=== PATIENT | female | born 1980 | race Hispanic/Latino ===

== ENCOUNTER 2017-09-20 20:50 | Inpatient (IN) | payer MEDICAID ==
[2017-09-20 21:55] LABS: BASO # 0.1 K/uL (0.0-0.2); BASO % 0.7 % (0.0-2.0); EOS # 0.1 K/uL (0.0-0.7); EOS % 0.6 % (0.0-4.0); HEMOGLOBIN 14.7 g/dL (11.0-16.0); LYMPH # 2.9 K/uL (1.0-4.3); LYMPH % 25.8 % (20.0-40.0); MEAN CELL VOLUME 88.5 fL (81.0-99.0); MEAN CORPUSCULAR HEMOGLOBIN 30.9 pg (27.0-31.0); MEAN CORPUSCULAR HGB CONC 34.9 g/dL (33.0-37.0); MEAN PLATELET VOLUME 9.1 fL (7.2-11.7); MONO # 0.6 K/uL (0.0-0.8); MONO % 5.1 % (0.0-10.0); NEUT # 7.6 K/uL (1.8-7.0); NEUT % 67.8 % (50.0-75.0); RBC 4.74 Mil/uL (3.80-5.20); RED CELL DISTRIBUTION WIDTH 12.6 % (11.5-14.5); WHITE BLOOD COUNT 11.3 K/uL (4.8-10.8)
[2017-09-20 22:07] LABS: SQUAMOUS EPITHIAL 24 /hpf (0-5); URINE BACTERIA RARE (<OCC); URINE BILIRUBIN NEGATIVE (NEGATIVE); URINE BLOOD 3+ (NEGATIVE); URINE CLARITY Turbid (Clear); URINE COLOR Amber (YELLOW); URINE GLUCOSE (UA) NORMAL (Normal); URINE PROTEIN 2+ mg/dL (NEGATIVE); URINE UROBILINOGEN NORMAL mg/dL (0.2-1.0)
[2017-09-20 22:08] LABS: ALB/GLOB RATIO 1.3 (1.0-2.1); ALBUMIN 4.3 g/dL (3.5-5.0); ALT/SGPT 24 U/L (9-52); AST/SGOT 27 U/L (14-36); BLOOD UREA NITROGEN 8 mg/dL (7-17); CALCIUM 9.4 mg/dl (8.6-10.4); GFR AFRICAN-AMERICAN > 60; GFR NON-AFRICAN AMERICAN > 60
[2017-09-20 22:09] LABS: ACETAMINOPHEN < 10.0 ug/mL (10.0-30.0); SALICYLATE < 1.0 mg/dL 1; URINE LEUKOCYTE ESTERASE 3+ Leu/uL (Negative)
[2017-09-20 22:12] LABS: BARBITURATES, UR NEGATIVE (NEGATIVE); BENZODIAZEPINES, UR NEGATIVE (NEGATIVE); PHENCYCLIDINE, UR NEGATIVE (NEGATIVE)
[2017-09-20 22:14] LABS: OPIATES, UR POSITIVE (NEGATIVE)
--- NOTE | 2017-09-20 23:17 | C.PDOC ---
Time Seen by Provider: 09/20/17 21:52 Chief Complaint (Nursing): Psychiatric Evaluation History Per: Patient Onset/Duration Of Symptoms: Days Current Symptoms Are (Timing): Still Present Suicide/Self Injury Attempted (Context): None Modifying Factor(s): Narcotics Severity: Moderate Associated Symptoms: Depression, Suicidal Thoughts Additional History Per: Prior Records Past Medical History Reviewed: Historical Data, Nursing Documentation, Vital Signs Vital Signs: Last Vital Signs Temp 97.6 F 09/20/17 22:41 Pulse 76 09/20/17 22:41 Resp 18 09/20/17 22:41 BP 117/80 09/20/17 22:41 Pulse Ox 97 09/20/17 22:41 - Medical History PMH: Bipolar Disorder, Seizures (2012 , grand mal, stopped meds) Family History: States: Unknown Family Hx - Social History Hx Tobacco Use: Yes Hx Alcohol Use: No Hx Substance Use: Yes (heroin iv , xanax) - Immunization History Hx Tetanus Toxoid Vaccination: No Hx Influenza Vaccination: No Hx Pneumococcal Vaccination: No Review Of Systems Except As Marked, All Systems Reviewed And Found Negative. Constitutional: Negative for: Fever Cardiovascular: Negative for: Chest Pain Respiratory: Negative for: Shortness of Breath Gastrointestinal: Negative for: Vomiting Musculoskeletal: Negative for: Neck Pain Neurological: Negative for: Weakness, Numbness Physical Exam - Physical Exam Appears: Non-toxic, No Acute Distress Skin: Normal Color, Warm, Dry Head: Atraumatic, Normacephalic Eye(s): bilateral: PERRL, EOMI Neck: Normal ROM, Supple Cardiovascular: Rhythm Regular Respiratory: Normal Breath Sounds, No Accessory Muscle Use Gastrointestinal/Abdominal: Soft, No Tenderness Extremity: Normal ROM Neurological/Psych: Oriented x3, Normal Motor, Normal Sensation ED Course And Treatment - Laboratory Results Result Diagrams: 09/20/17 21:48 09/20/17 21:48 Interpretation Of Abnormal: UTI, urine C&S sent. Urine POC: Negative O2 Sat by Pulse Oximetry: 97 Pulse Ox Interpretation: Normal Progress Note: Pt is medically stable for psychiatric admission. Please treat UTI with Cipro 500mg po bid for 5 days and follow up urine culture results. Disposition Counseled Patient/Family Regarding: Studies Performed, Diagnosis, Smoking Cessation - Disposition Disposition: HOSPITALIZED Disposition Time: 23:20 Condition: STABLE - Clinical Impression Clinical Impression: Bipolar disorder, Heroin dependence Decision To Admit - Pt Status Changed To: Hospital Disposition Of: Inpatient - Admit Certification Admit to Inpatient:: After my assessment, the patient will require hospitalization for at least two midnights. This is because of the severity of symptoms shown, intensity of services needed, and/or the medical risk in this patient being treated as an outpatient. - InPatient: Physician Admission Certification: I certify that this patient requires 2 or more midnights of care for the following reason:: Psych. - . Bed Request Type: Psychiatry Admitting Physician: Dalton Paul Patient Diagnosis: Bipolar disorder, Heroin dependence
--- NOTE | 2017-09-21 00:37 | PCM.BM ---
<Susie Calvin - Last Filed: 09/21/17 00:33> Treatment Plan Problems - Problems identified on initial assessmt Depression Date Initiated: 09/21/17 Time Initiated: 12:10 Assessment reference: NA Status: Active suicidal Ideation Date Initiated: 09/21/17 Time Initiated: 12:10 Assessment reference: NA Status: Active Treatment assets and liabiliti Patient Assests: cooperative, insightful, resourceful, physically healthy, negotiates basic needs Patient Liabilities: financial problems, substance abuse (Pt.used Heroine and xanax yesterday was the last time to use. Last used yesterday 16 bags IV ) - Milieu Protocol Maintain good personal hygiene: daily Encourage regular showers, daily Remind patient to perform daily oral care, daily Assist patient to perform ADL's Maintain personal safety: every shift Educate patient to report safety concerns to staff, every shift Monitor environment for contraband/sharps Medication safety: Monitor for expected outcome, potential side effects: every shift, Assess barriers to learning: every shift, Assess readiness for medication education: every shift <Gisele Srinivasan - Last Filed: 09/21/17 11:22> - Diagnosis (1) Bipolar disorder Status: Acute Interventions: 09/21/17 11:22 * Assess/adjust medications daily and /or as needed * See patient on an individual basis 7x/week to assess level of manic behaviors and stability * Discuss risks, benefits, side effects and alternatives of medications * (2) Heroin dependence Status: Acute Interventions: 09/21/17 11:23 * Assess 7x/week regarding severity of withdrawal * Educate regarding risks, benefits, side effects and alternatives of medications * Use Motivational Interviewing for abstinence * Use CBT for relapse prevention * Medication management for withdrawal symptoms * Encourage medication assisted treatment * <Carmina Ramos - Last Filed: 09/21/17 12:38> Family Contact Family involvement: Family/SO is involved Family contact: Patient declines to allow family contact at present - Goals for Treatment Patient goals for treatment: "I want to go back to [facility]." Discharge/Continuing Care - Education Needs Education Needs: Patient Medication, Patient Coping Skills, Patient Placement options, Patient Community resources - Discharge Discharge Criteria: Tolerates medication w/o severe side effects, No longer exhibiting s/s of withdrawal, Reduction of target symptoms Discharge to:: Substance Abuse Rehab - Treatment Team Participation Discussed with Family/SO: No Was Patient/Family/SO present at Treatment Team Meeting: Yes
--- NOTE | 2017-09-21 09:59 | PCM.PSYCH ---
Initial Psychiatric Evaluation - Initial Psychiatric Evaluation Type of Admission: Voluntary Legal Status: Capacity Chief Complaint (in patient's own words): CC: "I stopped taking my meds and became depressed and suicidal.' History of Present Illness and Precipitating Events: Pt is a 37 yr old female presenting to the ED requesting detox however then pt reports thoughts of wanting to harm herself. She reports Hx of bipolar disorder, PTSD, and opiate use disorder. As per the pt., she has worsening depression and difficulty sleeping over the last two months after stopping her medications. She was taking Seroquel, Keppra (for seizure), Neurontin, and Remeron, but stopped because she thought she didn't need them and symptoms became worse. Despite a 6 month period of sobriety, she has returned to using 15-20 bags of heroin/day (last use 2 days ago) to calm her racing thoughts. Associated symptoms include episodes of high energy, racing of thoughts, needing to get up and walk for an hour to go to sleep, and intermittent auditory hallucinations of whispers, and thoughts of suicide without plan. Denies paranoia, visual hallucinations. She has had one suicide attempt 3 years ago by pill ingestion. Patient states she wants to get better and off of heroin. 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 PMHx: UTI Current Medications: Active Medications Generic Name Dose Route Start Last Admin Trade Name Freq PRN Reason Stop Dose Admin Gabapentin 300 mg 09/21/17 10:00 09/21/17 09:03 Neurontin PO 300 mg TID EMETERIO Administration Hydroxyzine HCl 50 mg 09/21/17 06:13 09/21/17 06:44 Atarax PO 50 mg Q6H PRN Administration Anxiety Ibuprofen 600 mg 09/21/17 06:13 Motrin Tab PO Q6H PRN Pain, moderate (4-7) Methadone HCl 15 mg 09/21/17 17:00 Methadone PO 09/21/17 17:01 ONCE ONE Mirtazapine 15 mg 09/21/17 22:00 Remeron PO HS EMETERIO Nitrofurantoin Macrocrystals 100 mg 09/21/17 09:00 09/21/17 09:03 Macrobid PO 09/28/17 09:01 100 mg Q12H EMETERIO Administration Protocol Trazodone HCl 100 mg 09/21/17 06:13 Desyrel PO HS PRN Insomnia Past Psychiatric History - Past Psychiatric History Previous Treatment History: Inpatient Pertinent Medical Hx (Current Medical&Sleep Prob, Allergies): Allergies Allergy/AdvReac Type Severity Reaction Status Date / Time No Known Allergies Allergy Verified 09/20/17 20:57 No Known Home Med 09/20/17 Review of Systems - Review of Systems All systems: reviewed and no additional remarkable complaints except - Psychiatric Psychiatric: Anxiety, Auditory Hallucinations, Irritability, Suicidal Ideation Mental Status Examination - Personal Presentation Personal Presentation: Looks stated age - Affect Affect: Constricted, Depressed - Motor Activity Motor Activity: Calm - Reliability in Providing Information Reliability in Providing Information: Fair - Speech Speech: Organized - Mood Mood: Depressed, Anxious - Formal Thought Process Formal Thought Process: Hallucinations, Delusions - Obsessions/Compulsions Obsessions: No Compulsions: No - Cognitive Functions Orientation: Person, Place, Situation, Time Sensorium: Alert Attention/Concentration: Attentive Abstract Thinking: Jefferson Estimate of Intelligence: Below average Judgement: Imparied, as evidence by: Poor judgement, Imparied, as evidence by: Lack of insight into illness - Risk Risk: Suicidal, Withdrawal, Diminished functioning - Strength & Assets Inventory Strength & Assets Inventory: Employment status DSM 5 DX - DSM 5 DSM 5 Diagnosis: Bipolar mixed severe with psychotic features Opioid use disorder severe Opioid withdrawal - Recommended/Plan of Treatment Treatment Recommendations and Plan of Treatment: Bipolar mixed severe with psychotic features -Psychoeducation -Supportive therapy, group therapy, individual therapy -Depakote 250 mg PO bid -Neurontin 300 mg PO tid -Atarax 50 mg PO Q6H prn -Ibuprofen 600 mg PO Q6 prn -Seroquel 100 mg PO qhs Opioid use disorder severe Opioid withdrawal -Psychoeducation -Supportive therapy, group therapy, individual therapy -Methadone taper -[place] for abstinence UTI -Macrobid 100 mg PO Q12 -f/u urine culture - Smoking Cessation Smoking Cessation Initiated: No
[2017-09-21] MEDS: Divalproex 250 mg DR Tab PO SCH ×2 (10:19→18:03)
[2017-09-22] MEDS: Divalproex 250 mg DR Tab PO SCH (09:43)
--- NOTE | 2017-09-22 11:33 | PCM.PYCHPN ---
Psychiatric Progress Note - Psychiatric Progress Note Patient seen today, length of contact: 16 min Patient Chief Complaint: "I'm very anxious" Problems Identified/Issues Discussed: The pt is seen, chart reviewed, case discussed with staff. Support given, CBT and NV used briefly No new symptoms reported, improving slowly and needs more time No SEs from medications, risks discussed. After care discussed She is somewhat med-seeking Medication Change: Yes (meds adjusted) Medical Record Reviewed: Yes Mental Status Examination - Cognitive Function Orientation: Person, Place, Situation, Time Memory: Intact Attention: Poor Concentration: Poor Association: WNL Fund of Knowledge: WNL - Mood Mood: Depressed, Anxious - Affect Affect: Constricted, Depressed - Speech Speech: Appropriate - Formal Thought Process Formal Thought Process: No Impairment - Suicidal Ideation Suicidal Ideation: No - Homicidal Ideation Homicidal Ideation: No Goal/Treatment Plan - Goal/Treatment Plan Need for Continued Stay: Discharge may exacerbated symptoms, Severe functional impairment Progress Toward Problem(s) and Goals/Treatment Plan: Methadone detox Depakote increased Seroquel As needed medications Gabapentin for augmentation and anxiety All risks, benefits and alternatives of medications, including no medications, discussed and the patient understood and agreed. Attend groups and activities Supportive therapy and psychoeducation NV for abstinence CBT for relapse prevention Encourage MAT Refer to rehab or IOP Attend self-help groups as well NV for smoking cessation and patch if needed
[2017-09-22] MEDS ORDERED: Petrolatum Oint Foilpak (5 gm) TOP PRN (16:02)
[2017-09-22] MEDS: Divalproex 500 mg DR Tab PO SCH (17:30)
[2017-09-23] MEDS: Divalproex 500 mg DR Tab PO SCH ×2 (09:49→17:32)
--- NOTE | 2017-09-23 23:07 | PCM.PYCHPN ---
Psychiatric Progress Note - Psychiatric Progress Note Patient seen today, length of contact: 16 min Patient Chief Complaint: I CAN'T SLEEP. I HAVE RACING THOUGHTS AND I CAN'T SLEEP Problems Identified/Issues Discussed: PT SEEN AND EXAMINED DISCUSSED WITH STAFF ANXIETY PROBABLY HAS ADHD Medical Problems: NOTHING ACUTE Diagnostic Results: REVIEWED DSM 5 Symptoms Update: ANXIETY MOOD SWINGS Medication Change: Yes (SEROWOLFGANG BUSPAR) Medical Record Reviewed: Yes Mental Status Examination - Cognitive Function Orientation: Person, Situation, Time Memory: Intact Attention: Poor Concentration: Poor Association: WNL Fund of Knowledge: WNL - Mood Mood: Depressed, Anxious - Affect Affect: Constricted, Depressed - Speech Speech: Appropriate - Formal Thought Process Formal Thought Process: No Impairment - Suicidal Ideation Suicidal Ideation: No - Homicidal Ideation Homicidal Ideation: No Goal/Treatment Plan - Goal/Treatment Plan Need for Continued Stay: Discharge may exacerbated symptoms, Severe functional impairment Progress Toward Problem(s) and Goals/Treatment Plan: BIPOLAR DISORDER MIXED DEPAKOTE SEROQUEL NEURONTIN CBT IA SUPPORTIVE PSYCHOTHERAPY OPIATE WITHDRAWAL METHADONE PRNS NECESSAEY OPIATE USE DISORDER SEVERE IA CBT GROUPS PSYCHOTHERAPY Estimated Date of D/C: 10/01/17 - Smoking Cessation Smoking Cessation Initiated: No
[2017-09-24] MEDS: Divalproex 500 mg DR Tab PO SCH ×2 (09:07→18:11)
--- NOTE | 2017-09-24 11:29 | PCM.PYCHPN ---
Psychiatric Progress Note - Psychiatric Progress Note Patient seen today, length of contact: 16 min Patient Chief Complaint: CC: "I'm feeling very anxious.' Problems Identified/Issues Discussed: Patient seen and evaluated, chart reviewed and discussed with the nurse. Patient states her depression has improved but she is still getting persistent anxiety and that Atarax does not relieve the anxiety for more than an hour. She has been socially active with other patients. Patient is compliant with medications and denies any side effects. Symptoms are improving but need more time to stabilize. Support and psychoeducation given. Medication Change: Yes (SEROQUEL BUSPAR) Medical Record Reviewed: Yes Mental Status Examination - Cognitive Function Orientation: Person, Situation, Time Memory: Intact Attention: Poor Concentration: Poor Association: WNL Fund of Knowledge: WNL - Mood Mood: Depressed, Anxious - Affect Affect: Constricted, Depressed - Speech Speech: Appropriate - Formal Thought Process Formal Thought Process: No Impairment - Suicidal Ideation Suicidal Ideation: No - Homicidal Ideation Homicidal Ideation: No Goal/Treatment Plan - Goal/Treatment Plan Need for Continued Stay: Discharge may exacerbated symptoms, Severe functional impairment Progress Toward Problem(s) and Goals/Treatment Plan: Bipolar mixed severe with psychotic features -Psychoeducation -Supportive therapy, group therapy, individual therapy -Depakote 250 mg PO bid -Neurontin 300 mg PO tid -Atarax 50 mg PO Q6H prn -Ibuprofen 600 mg PO Q6 prn -Seroquel 100 mg PO qhs Opioid use disorder severe Opioid withdrawal -Psychoeducation -Supportive therapy, group therapy, individual therapy -Methadone taper -[place] for abstinence UTI -Macrobid 100 mg PO Q12 -f/u urine culture Estimated Date of D/C: 10/01/17
[2017-09-25 06:48] VITALS: O2SAT 100
[2017-09-25] MEDS: Divalproex 500 mg DR Tab PO SCH ×2 (09:45→17:19)
[2017-09-26] MEDS: Divalproex 500 mg DR Tab PO SCH ×2 (09:55→18:15)
[2017-09-27 06:14] VITALS: RESP 18
[2017-09-27] MEDS: Divalproex 500 mg DR Tab PO SCH ×2 (09:53→17:07)
--- NOTE | 2017-09-27 15:31 | PCM.PYCHPN ---
Psychiatric Progress Note - Psychiatric Progress Note Patient seen today, length of contact: 16 min Patient Chief Complaint: CC: "I'm feeling very anxious.' Problems Identified/Issues Discussed: Patient seen and evaluated, chart reviewed and discussed with the nurse. Patient states her depression has improved and that her anxiety is mostly under control. She has been sleeping well She has been socially active with other patients. Patient is compliant with medications and denies any side effects. Symptoms are improving but need more time to stabilize. Support and psychoeducation given. Medication Change: Yes (SEROQUEL BUSPAR) Medical Record Reviewed: Yes Mental Status Examination - Cognitive Function Orientation: Person, Situation, Time Memory: Intact Attention: Poor Concentration: Poor Association: WNL Fund of Knowledge: WNL - Mood Additional comments: appropriate mood - Affect Additional comments: appropriate affect - Speech Speech: Appropriate - Formal Thought Process Formal Thought Process: No Impairment - Suicidal Ideation Suicidal Ideation: No - Homicidal Ideation Homicidal Ideation: No Goal/Treatment Plan - Goal/Treatment Plan Need for Continued Stay: Discharge may exacerbated symptoms, Severe functional impairment Progress Toward Problem(s) and Goals/Treatment Plan: Bipolar mixed severe with psychotic features -Psychoeducation -Supportive therapy, group therapy, individual therapy -Depakote 250 mg PO bid -Neurontin 300 mg PO tid -Atarax 50 mg PO Q6H prn -Ibuprofen 600 mg PO Q6 prn -Seroquel 100 mg PO qhs Opioid use disorder severe Opioid withdrawal -Psychoeducation -Supportive therapy, group therapy, individual therapy -Methadone taper -[place] for abstinence UTI -Macrobid 100 mg PO Q12 -f/u urine culture Estimated Date of D/C: 09/28/17
[2017-09-28 06:12] VITALS: TEMP 97.8
[2017-09-28] MEDS: Divalproex 500 mg DR Tab PO SCH (09:50)
--- NOTE | 2017-09-28 09:58 | PCM.PYCHDC ---
Mental Status Examination - Mental Status Examination Orientation: Person, Place, Situation, Time Memory: Intact Mood: Neutral Affect: Constricted Speech: Soft Attention: WNL Concentration: WNL Association: WNL Fund of Knowledge: WNL Formal Thought Process: No Impairment Description of patient's judgement and insight: good, fair Psychotic Thoughts and Behaviors: denies any AVH Suicidal Ideation: No Current Homicidal Ideation?: No Discharge Summary - Discharge Note Reason for Hospitalization: Pt is a 37 yr old female presenting to the ED requesting detox however then pt reports thoughts of wanting to harm herself. She reports Hx of bipolar disorder, PTSD, and opiate use disorder. As per the pt., she has worsening depression and difficulty sleeping over the last two months after stopping her medications. She was taking Seroquel, Keppra (for seizure), Neurontin, and Remeron, but stopped because she thought she didn't need them and symptoms became worse. Despite a 6 month period of sobriety, she has returned to using 15-20 bags of heroin/day (last use 2 days ago) to calm her racing thoughts. Associated symptoms include episodes of high energy, racing of thoughts, needing to get up and walk for an hour to go to sleep, and intermittent auditory hallucinations of whispers, and thoughts of suicide without plan. Denies paranoia, visual hallucinations. She has had one suicide attempt 3 years ago by pill ingestion. Patient states she wants to get better and off of heroin. Consultations:: List each consultation separately and include: 1. Reason for request. 2. Findings. 3. Follow-up Summary of Hospital Course include:: 1. Description of specific treatment plan utilized for patients during their course of treatmen. 2. Summarize the time- course for resolution of acute symptoms and/or regressed behaviors. 3. Describe issues identified and worked on during hospitalization. 4. Describe medication utilized. 5. Describe medical problems identified and treated. 6. Reassessment of suicide risk Summary of Hospital Course: During the course of her stay, patient (pt) started progressively improving and no longer remained irritable, depressed, and suicidal. Her mood and anxiety were improved and she started attending groups and meetings and started socializing. Patient denied any feelings of hopelessness, helplessness, and worthlessness, denied any problem with the sleep or appetite, denied suicidal ideation or homicidal ideation. Pt denied any auditory or visual hallucinations. She denied any withdrawal symptoms. Some changes were made in her current medications and patient was discharged on following medications. She tolerated these medications very well and denied any side effects. She was discharged to the [facility] rehab. - Diagnosis (1) Bipolar disorder Status: Acute (2) Heroin dependence Status: Acute - Final Diagnosis (DSM 5) Condition upon Discharge: STABLE DSM 5: Bipolar mixed severe with psychotic features Opioid use disorder severe Opioid withdrawal Disposition: HOME/ ROUTINE Follow-up Treatment Plan: Education: Pt was educated and counseled about the risks and benefits of taking and not taking medications. Pt was educated and counseled about the risks of drinking and abusing drugs. Pt was educated and counseled to go to the ER or call 911 if pt develop suicidal ideation or homicidal ideation, worsening of symptoms or severe side effects of the meds. Prescriptions/Medication Reconciliation: busPIRone [Buspar] 10 mg PO BID #60 tab Divalproex [Depakote DR] 500 mg PO BID #60 tcp Gabapentin [Neurontin] 300 mg PO BID #60 cap QUEtiapine [SEROquel] 200 mg PO HS #30 tab - Smoking Cessation Smoking Cessation Medication prescribed: No - Antipsychotic Medications Pt discharged on 2 or more routine antipsychotic medications: No
[2017-09-28 12:12] VITALS: BP 109/78; PULSE 83
== END 2017-09-28 11:54 | disposition home or self-care (01) | DRG 430 ==
LOC: C.ER 20:50 → SUPCPDRO 20:50 → C.5E 23:21
PROVIDERS: ADMIT Psychiatry & Neurology Psychiatry; ATTEND Psychiatry & Neurology Psychiatry
DX: F31.63 Bipolar disorder, current episode mixed, severe, without psychotic features (principal); F11.23 Opioid dependence with withdrawal; N39.0 Urinary tract infection, site not specified; R56.9 Unspecified convulsions; F43.10 Post-traumatic stress disorder, unspecified; Z91.5 Personal history of self-harm

== ENCOUNTER 2017-11-02 22:03 | Inpatient (IN) | payer MEDICAID, OTHER ==
[2017-11-02 23:11] LABS: BASO # 0.1 K/uL (0.0-0.2); BASO % 0.7 % (0.0-2.0); EOS # 0.6 K/uL (0.0-0.7); EOS % 5.3 % (0.0-4.0); HEMOGLOBIN 13.5 g/dL (11.0-16.0); LYMPH # 2.6 K/uL (1.0-4.3); LYMPH % 24.3 % (20.0-40.0); MEAN CELL VOLUME 90.5 fL (81.0-99.0); MEAN CORPUSCULAR HEMOGLOBIN 31.4 pg (27.0-31.0); MEAN CORPUSCULAR HGB CONC 34.6 g/dL (33.0-37.0); MEAN PLATELET VOLUME 9.8 fL (7.2-11.7); MONO # 0.7 K/uL (0.0-0.8); MONO % 6.6 % (0.0-10.0); NEUT # 6.8 K/uL (1.8-7.0); NEUT % 63.1 % (50.0-75.0); RBC 4.31 Mil/uL (3.80-5.20); WHITE BLOOD COUNT 10.8 K/uL (4.8-10.8)
[2017-11-02 23:21] LABS: HCG,QUALITATIVE URINE POSITIVE (NEGATIVE)
[2017-11-02 23:25] LABS: SQUAMOUS EPITHIAL 8 /hpf (0-5); URINE BACTERIA FEW (<OCC); URINE BILIRUBIN NEGATIVE (NEGATIVE); URINE BLOOD NEGATIVE (NEGATIVE); URINE CLARITY Hazy (Clear); URINE COLOR YELLOW (YELLOW); URINE GLUCOSE (UA) NORMAL (Normal); URINE LEUKOCYTE ESTERASE 3+ Leu/uL (Negative); URINE PROTEIN NEGATIVE (NEGATIVE)
[2017-11-02 23:27] LABS: ALB/GLOB RATIO 1.3 (1.0-2.1); ALBUMIN 3.7 g/dL (3.5-5.0); ALT/SGPT 24 U/L (9-52); AST/SGOT 26 U/L (14-36); BLOOD UREA NITROGEN 7 mg/dL (7-17); CALCIUM 9.4 mg/dl (8.6-10.4); GFR AFRICAN-AMERICAN > 60; GFR NON-AFRICAN AMERICAN > 60
[2017-11-02 23:36] LABS: BARBITURATES, UR NEGATIVE (NEGATIVE); BENZODIAZEPINES, UR NEGATIVE (NEGATIVE); PHENCYCLIDINE, UR NEGATIVE (NEGATIVE)
[2017-11-02 23:37] LABS: OPIATES, UR POSITIVE (NEGATIVE)
[2017-11-02 23:38] LABS: ACETAMINOPHEN < 10.0 ug/mL (10.0-30.0); SALICYLATE < 1.0 mg/dL 1
--- NOTE | 2017-11-03 00:57 | C.PDOC ---
History Of Present Illness 37 year old female presents to the ED for psychiatric evaluation. Patient reports suicidal ideation. She states she is Bipolar and has not been taking her medications. Patient was seen in this ED one month ago for similar complaints. She denies homicidal ideation and has no physical complaints at this time. Does not know herself to be , and is not planning at this time. Time Seen by Provider: 11/02/17 22:58 Chief Complaint (Nursing): Psychiatric Evaluation History Per: Patient History/Exam Limitations: no limitations Onset/Duration Of Symptoms: Hrs Current Symptoms Are (Timing): Still Present Suicide/Self Injury Attempted (Context): None Associated Symptoms: Suicidal Thoughts Involuntary Hold By: None Recent travel outside of the [place]: No Additional History Per: Patient Past Medical History Reviewed: Historical Data, Nursing Documentation, Vital Signs Vital Signs: Last Vital Signs Temp 98.4 F 11/03/17 04:02 Pulse 66 11/03/17 04:02 Resp 20 11/03/17 04:02 BP 99/64 L 11/03/17 04:02 Pulse Ox 100 11/03/17 04:02 - Medical History PMH: Anxiety, Bipolar Disorder, Depression, Seizures (2012 , grand mal, stopped meds) Surgical History: No Surg Hx Family History: States: Unknown Family Hx - Social History Hx Tobacco Use: Yes Hx Alcohol Use: No Hx Substance Use: Yes - Immunization History Hx Tetanus Toxoid Vaccination: No Hx Influenza Vaccination: Yes Hx Pneumococcal Vaccination: No Review Of Systems Psych: Positive for: Suicidal ideation Physical Exam - Physical Exam Appears: Non-toxic, No Acute Distress Skin: Normal Color, Warm, Dry Head: Atraumatic, Normacephalic Eye(s): bilateral: Normal Inspection Oral Mucosa: Moist Neck: Supple Chest: Symmetrical, No Deformity, No Tenderness Cardiovascular: Rhythm Regular, No Murmur Respiratory: Normal Breath Sounds, No Rales, No Rhonchi, No Wheezing Extremity: Normal ROM, Capillary Refill (less than 2 seconds ) Neurological/Psych: Oriented x3, Normal Speech, Normal Cognition ED Course And Treatment - Laboratory Results Result Diagrams: 11/02/17 23:08 11/02/17 23:08 Lab Interpretation: Abnormal (+ 29 WBC's in urine) Urine POC: Positive O2 Sat by Pulse Oximetry: 100 (on RA ) Pulse Ox Interpretation: Normal Progress Note: Bloodwork and urinalysis ordered and reviewed. macrobid PO Reevaluation Time: 02:37 Reassessment Condition: Improved - Physician Consult Information Outcome Of Conversation: 0240: d/w Inge, Pushpa, ok to admit. Medical Decision Making Medical Decision Making: early preg w UTI opiate abuse bipolar Disposition Doctor Will See Patient In The: Hospital Counseled Patient/Family Regarding: Studies Performed, Diagnosis - Disposition Disposition: HOSPITALIZED Disposition Time: 02:38 Condition: GOOD - Clinical Impression Clinical Impression: Bipolar disorder, , UTI (urinary tract infection) - Scribe Statement The provider has reviewed the documentation as recorded by the Scribe (Charo Flor) Provider Attestation: All medical record entries made by the Scribe were at my direction and personally dictated by me. I have reviewed the chart and agree that the record accurately reflects my personal performance of the history, physical exam, medical decision making, and the department course for this patient. I have also personally directed, reviewed, and agree with the discharge instructions and disposition.
--- NOTE | 2017-11-03 05:09 | PCM.BM ---
<Susie Calvin - Last Filed: 11/03/17 05:07> Treatment Plan Problems - Problems identified on initial assessmt Depression Date Initiated: 11/03/17 Time Initiated: 05:08 Date resolved: 11/03/17 Assessment reference: NA Status: Active Anxiety Date Initiated: 11/03/17 Time Initiated: 05:09 Date resolved: 11/03/17 Assessment reference: NA Status: Active Treatment assets and liabiliti Patient Assests: adapts well, cooperative (follow rules), insightful (goal treatment oriented), resourceful, ADL independent (No issues with movetment.), physically healthy, negotiates basic needs Patient Liabilities: substance abuse (Pt. abuse Xanax and heroin) <Gisele Srinivasan - Last Filed: 11/05/17 11:02> - Diagnosis (1) Bipolar disorder Status: Acute Interventions: 11/05/17 11:03 * Assess/adjust medications daily and /or as needed * See patient on an individual basis 7x/week to assess level of manic behaviors and stability * Discuss risks, benefits, side effects and alternatives of medications * (2) Heroin dependence Status: Acute Interventions: 11/05/17 11:03 * Assess 7x/week regarding severity of withdrawal * Educate regarding risks, benefits, side effects and alternatives of medications * Use Motivational Interviewing for abstinence * Use CBT for relapse prevention * Medication management for withdrawal symptoms * Encourage medication assisted treatment * <Carmina Ramos - Last Filed: 11/05/17 13:24> Family Contact Family involvement: Family/SO is involved Family contact: Patient declines to allow family contact at present - Goals for Treatment Patient goals for treatment: "I want to go to rehab." Discharge/Continuing Care - Education Needs Education Needs: Patient Medication, Patient Coping Skills, Patient Placement options, Patient Community resources - Discharge Discharge Criteria: Tolerates medication w/o severe side effects, No longer exhibiting s/s of withdrawal, Reduction of target symptoms Discharge to:: Substance Abuse Rehab - Treatment Team Participation Discussed with Family/SO: No Was Patient/Family/SO present at Treatment Team Meeting: Yes
[2017-11-03] MEDS: Prenatal Multivit/Folic Acid/Iron Tab PO SCH (12:46)
--- NOTE | 2017-11-03 13:58 | US ---
PROCEDURE: OB Pelvic Ultrasound HISTORY: to r/o LMP: 09/26/2017 COMPARISON: None available. FINDINGS: UTERUS: Gestational sac: Single intrauterine gestation. Heart rate: 132 bpm. age (Ultrasound estimated): 6 weeks 4 days 0 weeks 3 days Carmen-gestational hemorrhage: None. Date of delivery (Ultrasound estimated) : 06/25/2018 Uterus measures 9.5 x 5 x 6 cm. Normal in size and appearance. CERVIX: Measures 3.1 cm. Long and closed. No cervical abnormality seen. RIGHT OVARY: Right ovary was not visualized LEFT OVARY: Measures 3 x 2.2 x 3.3 cm. No solid mass. Normal flow. Small cyst seen at the left ovary measures 1.7 x 1 x 1.6 centimeter likely represent corpus luteum cyst. FREE FLUID: None. OTHER FINDINGS: None. IMPRESSION: Live with ultrasound estimated gestational age of 6 weeks 4 days 0 weeks 3 days. Estimated date of delivery by ultrasound is 06/25/2018. No evidence of acute pathology.
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
[2017-11-04] MEDS: Prenatal Multivit/Folic Acid/Iron Tab PO SCH ×2 (10:02→15:18)
--- NOTE | 2017-11-04 12:20 | PCM.PYCHPN ---
Psychiatric Progress Note - Psychiatric Progress Note Patient seen today, length of contact: 15 MINUTES Patient Chief Complaint: "I have Bipolar depression" Problems Identified/Issues Discussed: Pt was seen and evaluated. Chart reviewed. Mental Status Examination - Cognitive Function Orientation: Person, Place, Situation, Time - Mood Mood: Depressed - Affect Affect: Constricted - Formal Thought Process Formal Thought Process: No Impairment - Homicidal Ideation Homicidal Ideation: No Goal/Treatment Plan - Goal/Treatment Plan Progress Toward Problem(s) and Goals/Treatment Plan: Methadone taper Librium taper Start Latuda 20 mg po daily for Bipolar depression and it is category B. Prescription was fax to pharmacy. Give Haldol Prn for agitation Benadryl for anxiety, insomnia, and agitation. Will f/u with ObGyn recommendations FOR UTI treatment Supportive therapy Psychoeducation provided recommend to attend group meetings. Monitor vitals. Medications benefits and side effects were discussed with the pt, including medication teratogenic properties and its harmful effects on fetus, and including but not limited to loss of . Pt verbalized understanding and stated that she is well aware of the side effects and wants to be clean and sober. Time spend 40 minutes
--- NOTE | 2017-11-04 18:01 | PCM.PYCHPN ---
Psychiatric Progress Note - Psychiatric Progress Note Patient seen today, length of contact: 15 MINUTES Patient Chief Complaint: "I have opioid withdrawal symptoms" Problems Identified/Issues Discussed: Pt was seen and evaluated. Chart reviewed. Nurse input received. Pt reported that she is experiencing opioid withdrawal symptoms. She reported she is feeling anxious, has goose bumps, sweating, yawning, nasal discharge. Pt need time to stabilized. Psychoeducation was provided regarding medication. Risk and benefits were discussed with the pt. she verbalized understanding and agree with the treatment plan. Pt denied SI, HI, intent or plan. Currently no manic or psychotic symptoms observed or reported. Pt denied any seizure for more than 1 year. Pt stated that her seizure are related to her withdrawal symptoms. DSM 5 Symptoms Update: Bipolar disorder, mre depressed mood Opioid dependence, severe, Opioid withdrawal Hypnotic/Sedative use disorder UTI Medication Change: Yes Medical Record Reviewed: Yes Mental Status Examination - Cognitive Function Orientation: Person, Place, Situation, Time Memory: Intact Attention: WNL Concentration: WNL Association: WNL Fund of Knowledge: [facility] Decription of patient's judgement and insights: fair/fair - Mood Mood: Anxious - Affect Affect: Constricted - Speech Speech: Appropriate - Formal Thought Process Formal Thought Process: No Impairment - Suicidal Ideation Suicidal Ideation: No Plan: denied - Homicidal Ideation Homicidal Ideation: No Plan: denied Goal/Treatment Plan - Goal/Treatment Plan Need for Continued Stay: Severe depression anxiety, Discharge may exacerbated symptoms Progress Toward Problem(s) and Goals/Treatment Plan: Methadone taper Librium taper Monitoring mood symptoms. Will start mood stabilizer once detox is completed. Consider start Latuda 20 mg po daily for bipolar depression. Benadryl for anxiety, insomnia, and agitation. Called [facility] and Dr. Shields recommended to continue Macrobid for UTI treatment for 7 days. Supportive therapy Psychoeducation provided recommend to attend group meetings. Monitor vitals. Medications benefits and side effects were discussed with the pt, including medication teratogenic properties and its harmful effects on fetus, and including but not limited to loss of . Pt verbalized understanding and stated that she is well aware of the side effects and wants to be clean and sober. Pt stated that she wants to continue current treatment. - Smoking Cessation Smoking Cessation Initiated: Yes
[2017-11-05 06:26] VITALS: RESP 20
[2017-11-05] MEDS: Prenatal Multivit/Folic Acid/Iron Tab PO SCH (09:14)
--- NOTE | 2017-11-05 10:35 | PCM.PYCHPN ---
Psychiatric Progress Note - Psychiatric Progress Note Patient seen today, length of contact: 15 MINUTES Medication Change: Yes Medical Record Reviewed: Yes Mental Status Examination - Cognitive Function Orientation: Person, Place, Situation, Time Memory: Intact Attention: WNL Concentration: WNL Association: WNL Fund of Knowledge: WNL - Mood Mood: Anxious - Affect Affect: Constricted - Speech Speech: Appropriate - Formal Thought Process Formal Thought Process: No Impairment - Suicidal Ideation Suicidal Ideation: No - Homicidal Ideation Homicidal Ideation: No Goal/Treatment Plan - Goal/Treatment Plan Need for Continued Stay: Severe depression anxiety, Discharge may exacerbated symptoms
[2017-11-06 06:25] VITALS: BP 98/54; PULSE 67; TEMP 98.1; O2SAT 99
[2017-11-06] MEDS: Prenatal Multivit/Folic Acid/Iron Tab PO SCH (09:01)
--- NOTE | 2017-11-06 09:40 | PCM.PYCHDC ---
Mental Status Examination - Mental Status Examination Orientation: Person, Place, Situation, Time Memory: Intact Mood: Neutral Affect: Constricted Speech: Soft Attention: WNL Concentration: WNL Association: WNL Fund of Knowledge: WNL Formal Thought Process: No Impairment Description of patient's judgement and insight: good, fair Psychotic Thoughts and Behaviors: denies any AVH Suicidal Ideation: No Current Homicidal Ideation?: No Discharge Summary - Discharge Note Reason for Hospitalization: Pt is a 37 yr old female presenting to the ED requesting detox however then pt reports thoughts of wanting to harm herself. Pt reports Hx of bipolar disorder, PTSD, and opiate use disorder. Pt stated that she had relapse on opioid and xanax after discharge from the inpatient unit because she was not able to go rehab. Pt reported she had worsening of depression and difficulty sleeping. She was taking Seroquel, Depakote, Neurontin, and Remeron, but stopped because she thought she didn't need them and symptoms became worse. Additionally, pt reported that she is using 10-15 bags of heroin/day to calm her racing thoughts. Associated symptoms include episodes of high energy, racing of thoughts, needing to get up and insomnia. She denied auditory hallucinations, suicidal thoughts, intent or plan. Pt contracted for safety. Denies paranoia, visual hallucinations. She has had one suicide attempt 3 years ago by pill ingestion. Patient states she wants to get better and off of heroin. Pt stated that she is abusing xanax 1-3 mg/day. Pt reported she is using 10-15 bags of heroin daily basis. She reported opioid withdrawal symptoms including yawning, sweating, feeling cold turkey, stomach pain,, body aches. Pt denied nausea, or diarrhea. Psychiatric History (includes Medical, Family, Personal Hx): detox treatment for opioid and benzo Consultations:: List each consultation separately and include: 1. Reason for request. 2. Findings. 3. Follow-up Summary of Hospital Course include:: 1. Description of specific treatment plan utilized for patients during their course of treatmen. 2. Summarize the time- course for resolution of acute symptoms and/or regressed behaviors. 3. Describe issues identified and worked on during hospitalization. 4. Describe medication utilized. 5. Describe medical problems identified and treated. 6. Reassessment of suicide risk - Diagnosis (1) Bipolar disorder Current Visit: Yes Status: Acute (2) Heroin dependence Current Visit: No Status: Acute - Final Diagnosis (DSM 5) Condition upon Discharge: GOOD DSM 5: Bipolar disorder mre depressed mood, OPioid use disorder, dependence, severe, Hypnotic/ sedative use disorder, dependence, with withdrawal symptoms. Disposition: HOME/ ROUTINE
== END 2017-11-06 09:45 | disposition home or self-care (01) | DRG 744 ==
LOC: C.ER 22:03 → C.5E 11-03 03:38 → EEVIPCON 11-03 03:38
PROVIDERS: ADMIT Psychiatry & Neurology Psychiatry; ATTEND Psychiatry & Neurology Psychiatry
PROC: HZ2ZZZZ Detoxification Services for Substance Abuse Treatment (ICD-10-PCS; principal; 2017-11-03)
DX: F11.23 Opioid dependence with withdrawal (principal); N39.0 Urinary tract infection, site not specified; G40.409 Other generalized epilepsy and epileptic syndromes, not intractable, without status epilepticus; O99.334 Smoking (tobacco) complicating childbirth; R45.851 Suicidal ideations; G47.00 Insomnia, unspecified; F43.10 Post-traumatic stress disorder, unspecified; Z33.1 Pregnant state, incidental

== ENCOUNTER 2017-11-28 18:02 | Inpatient (IN) | payer MEDICAID, OTHER ==
[2017-11-28 19:23] LABS: BASO # 0.1 K/uL (0.0-0.2); BASO % 0.9 % (0.0-2.0); EOS # 0.1 K/uL (0.0-0.7); EOS % 1.1 % (0.0-4.0); HEMOGLOBIN 12.6 g/dL (11.0-16.0); LYMPH # 2.2 K/uL (1.0-4.3); LYMPH % 20.8 % (20.0-40.0); MEAN CELL VOLUME 89.9 fL (81.0-99.0); MEAN CORPUSCULAR HEMOGLOBIN 30.6 pg (27.0-31.0); MEAN PLATELET VOLUME 9.5 fL (7.2-11.7); MONO # 0.6 K/uL (0.0-0.8); MONO % 6.2 % (0.0-10.0); NEUT # 7.5 K/uL (1.8-7.0); RBC 4.11 Mil/uL (3.80-5.20); RED CELL DISTRIBUTION WIDTH 12.9 % (11.5-14.5); WHITE BLOOD COUNT 10.5 K/uL (4.8-10.8)
[2017-11-28 19:30] LABS: SQUAMOUS EPITHIAL 30 /hpf (0-5); URINE BACTERIA FEW (<OCC); URINE BILIRUBIN NEGATIVE (NEGATIVE); URINE BLOOD NEGATIVE (NEGATIVE); URINE CLARITY Hazy (Clear); URINE COLOR Amber (YELLOW); URINE GLUCOSE (UA) NORMAL (Normal); URINE LEUKOCYTE ESTERASE 2+ Leu/uL (Negative); URINE PROTEIN NEGATIVE (NEGATIVE)
--- NOTE | 2017-11-28 19:38 | C.PDOC ---
History Of Present Illness 37yo female, with history of IV drug abuse (heroin), comes to ER stating she needs help as she found out she is two months . Patient states she feels depressed and now is having suicidal ideation. She reports last night, she wanted to over dose on pills. Currently, she denies any medical complaints. Time Seen by Provider: 11/28/17 18:55 Chief Complaint (Nursing): Psychiatric Evaluation History Per: Patient History/Exam Limitations: no limitations Onset/Duration Of Symptoms: Days Current Symptoms Are (Timing): Still Present Suicide/Self Injury Attempted (Context): Ingestion Modifying Factor(s): Narcotics Associated Symptoms: Depression, Suicidal Thoughts, Suicidal Plan Past Medical History Reviewed: Historical Data, Nursing Documentation, Vital Signs Vital Signs: Last Vital Signs Temp 98.5 F 11/29/17 00:56 Pulse 68 11/29/17 00:56 Resp 14 11/29/17 00:56 BP 99/62 L 11/29/17 00:56 Pulse Ox 97 11/29/17 00:56 - Medical History PMH: Anxiety, Bipolar Disorder, Depression, Seizures (2011 , grand mal, stopped meds) Surgical History: No Surg Hx - [facility] FOR SUBSTANCE ABUSE TREATMENT (11/03/17) Family History: States: Unknown Family Hx - Social History Hx Tobacco Use: Yes Hx Alcohol Use: No Hx Substance Use: Yes - Immunization History Hx Tetanus Toxoid Vaccination: No Hx Influenza Vaccination: Yes Hx Pneumococcal Vaccination: No Review Of Systems Constitutional: Negative for: Fever, Chills Cardiovascular: Negative for: Chest Pain Respiratory: Negative for: Shortness of Breath Gastrointestinal: Negative for: Abdominal Pain Psych: Positive for: Depression, Suicidal ideation Physical Exam - Physical Exam Appears: No Acute Distress Skin: Normal Color, Warm, Dry Head: Atraumatic, Normacephalic Eye(s): bilateral: Normal Inspection, PERRL, EOMI Oral Mucosa: Moist Neck: Normal ROM, Supple Chest: Symmetrical Cardiovascular: Rhythm Regular Respiratory: Normal Breath Sounds Gastrointestinal/Abdominal: Normal Exam, Soft, No Tenderness, No Mass, No Guarding, No Rebound Back: Normal Inspection Extremity: Normal ROM, No Pedal Edema Neurological/Psych: Oriented x3, Normal Cognition, Normal Motor, Normal Sensation ED Course And Treatment - Laboratory Results Result Diagrams: 11/28/17 19:21 11/28/17 19:21 Lab Interpretation: No Acute Changes O2 Sat by Pulse Oximetry: 99 (RA) Pulse Ox Interpretation: Normal Progress Note: Patient is medically cleared for detox evaluation. Medical Decision Making Medical Decision Making: Plan: -- UDS -- Urinalysis -- Beta-HCG -- Labs Disposition - Disposition Disposition Time: 00:59 Condition: STABLE - POA Present On Arrival: None - Clinical Impression Clinical Impression: Opiate abuse, continuous, - Scribe Statement The provider has reviewed the documentation as recorded by the Scribe (Aubree Birmingham) Provider Attestation: All medical record entries made by the Scribe were at my direction and personally dictated by me. I have reviewed the chart and agree that the record accurately reflects my personal performance of the history, physical exam, medical decision making, and the department course for this patient. I have also personally directed, reviewed, and agree with the discharge instructions and disposition. Physician Patient Turnover Patient Signed Over To: Javid Shankar Handoff Comments: pending disposition by psychiatrist
[2017-11-28 19:41] LABS: BARBITURATES, UR NEGATIVE (NEGATIVE); BENZODIAZEPINES, UR NEGATIVE (NEGATIVE); PHENCYCLIDINE, UR NEGATIVE (NEGATIVE)
[2017-11-28 19:47] LABS: ALB/GLOB RATIO 1.4 (1.0-2.1); ALBUMIN 3.9 g/dL (3.5-5.0); ALT/SGPT 27 U/L (9-52); AST/SGOT 22 U/L (14-36); BLOOD UREA NITROGEN 5 mg/dL (7-17); CALCIUM 8.8 mg/dl (8.6-10.4); GFR AFRICAN-AMERICAN > 60; GFR NON-AFRICAN AMERICAN > 60
[2017-11-28 20:08] LABS: OPIATES, UR POSITIVE (NEGATIVE)
--- NOTE | 2017-11-29 03:27 | PCM.BM ---
<Ck,Deedee D - Last Filed: 11/29/17 03:26> Treatment Plan Problems - Problems identified on initial assessmt Opiate Dependence Date Initiated: 11/29/17 Time Initiated: 03:26 Assessment reference: NA Status: Active Treatment assets and liabiliti Patient Assests: adapts well, cooperative (follow rules), insightful (goal treatment oriented), resourceful, ADL independent (No issues with movetment.), physically healthy, negotiates basic needs - Milieu Protocol Maintain good personal hygiene: daily Encourage regular showers, daily Remind patient to perform daily oral care, daily Assist patient to perform ADL's Maintain personal safety: every shift Educate patient to report safety concerns to staff, every shift Monitor environment for contraband/sharps Medication safety: Monitor for expected outcome, potential side effects: every shift, Assess barriers to learning: every shift, Assess readiness for medication education: every shift <Kael Cazares M - Last Filed: 11/29/17 15:46> - Diagnosis (1) Opioid use disorder, severe, dependence Status: Acute Interventions: 11/29/17 15:45 * Assess 7x/week regarding severity of withdrawal * Educate regarding risks, benefits, side effects and alternatives of medications * Use Motivational Interviewing for abstinence * Use CBT for relapse prevention * Medication management for withdrawal symptoms * Encourage medication assisted treatment (2) Cannabis use disorder, moderate, dependence Status: Acute Interventions: 11/29/17 15:45 * Assess 7x/week regarding severity of withdrawal * Educate regarding risks, benefits, side effects and alternatives of medications * Use Motivational Interviewing for abstinence * Use CBT for relapse prevention * Medication management for withdrawal symptoms * Encourage medication assisted treatment (3) Bipolar 1 disorder, depressed Status: Acute Interventions: 11/29/17 15:4 * Assess/adjust medications daily and /or as needed * See patient on an individual basis 7x/week to assess symptoms of depression * Monitor for side effects & effectiveness of medications <Amaya Owens - Last Filed: 12/04/17 08:42> Family Contact Family involvement: Family/SO is involved Family contact: Patient agrees to contact Family contact name: boyfriend Family contacted how many times per week?: 1 - Goals for Treatment Patient goals for treatment: Complete detox and transition to methadone maintenance. Discharge/Continuing Care - Education Needs Education Needs: Patient Medication, Patient Diagnosis/Disease Process, Patient Coping Skills, Patient Anger Management skills, Patient Placement options, Patient Community resources, Patient Other (), Significant Other Medication, Significant Other Diagnosis/Disease Process, Significant Other Coping Skills, Significant Other Anger Management skills, Significant Other Placement options, Significant Other Community resources - Discharge Discharge Criteria: Ability to care for self, No longer exhibiting s/s of withdrawal, Reduction of target symptoms Discharge to:: Substance Abuse Rehab - Additional Comments 12/04/17 08:42 Sober living facility - Treatment Team Participation Discussed with Family/SO: No Was Patient/Family/SO present at Treatment Team Meeting: Yes
[2017-11-29] MEDS ORDERED: Prenatal Multivit/Folic Acid/Iron Tab PO SCH (10:00)
[2017-11-29] MEDS: Prenatal Multivit/Folic Acid/Iron Tab PO SCH (12:53)
--- NOTE | 2017-11-29 15:39 | PCM.PSYCH ---
Initial Psychiatric Evaluation - Initial Psychiatric Evaluation Type of Admission: Voluntary Legal Status: Capacity Chief Complaint (in patient's own words): I need help for my substance use. History of Present Illness and Precipitating Events: Patient is a 37 years old, , unemployed, 2 months female with history of bipolar disorder depressed for last 3 years reported compliant with treatment including Neurontin and Seroquel was admitted due to withdrawing from heroin and cannabis. Heroin: Patient reported that she was taking opiate pain medications secondary to injury on her right ankle. She started abusing these drugs this happened about 18 years ago. Later patient switched to heroin about 7 years ago, increased gradually. Currently she was taking 20 bags of heroin daily, IV. Her last used of heroin was yesterday, 4 bags. Her longest period of abstinence was about 5-6 months when she was in rehabilitation at [facility]. She finished the program in June 2017 and relapsed with heroin. History of 3 detox and 3 rehabs in the past. Cannabis: Started at 15 years ago, ongoing daily. Last used one week ago. Also reported using Xanax for lasts 7 years. Was taking 1 steak each of 2 mg daily. Urine drug screen was negative for anxiolytics. Also smokes 15 cigarettes daily and is requesting to get nicotine patch. Patient has history of right ankle surgery. She was incarcerated for 1-1/2 years due to possession of drugs and later she was on probation. Patient was born in [place], has 11th grade of education. Patient is not working. 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 She is and has an 11 years old daughter who lives with patient's brother. Patient lives with her [id number]. Her height is 5 feet 3 inches and weight is 130 pounds. Current Medications: Active Medications Generic Name Dose Route Start Last Admin Trade Name Freq PRN Reason Stop Dose Admin Acetaminophen 650 mg 11/29/17 12:18 Tylenol 325mg Tab PO Q4H PRN Fever greater than 101 F Methadone HCl 15 mg 11/30/17 10:00 Methadone PO 12/03/17 09:59 Q24H EMETERIO Taper Ondansetron HCl 4 mg 11/29/17 12:18 Zofran Tab PO Q8 PRN Nausea/Vomiting Multivit/Folic Acid/Iron 1 tab 11/29/17 12:30 11/29/17 12:53 PO Not Given DAILY EMETERIO Past Psychiatric History - Past Psychiatric History Previous Treatment History: Inpatient Prior Professional Help: [facility] History of Abuse: None reported History of ETOH/Drug Use: See HPI History of Family Illness: None reported Pertinent Medical Hx (Current Medical&Sleep Prob, Allergies): Allergies Allergy/AdvReac Type Severity Reaction Status Date / Time No Known Allergies Allergy Verified 11/28/17 18:28 No Known Home Med 11/02/17 Review of Systems - Psychiatric Psychiatric: As Per HPI, Depression Mental Status Examination - Personal Presentation Personal Presentation: Looks stated age - Affect Affect: Depressed - Motor Activity Motor Activity: Calm - Reliability in Providing Information Reliability in Providing Information: Fair - Speech Speech: Organized - Mood Mood: Depressed - Formal Thought Process Formal Thought Process: No Impairment - Hallucinations/Delusions Hallucinations: Other (None reported) Delusions: Other - Obsessions/Compulsions Obsessions: None Compulsions: None - Cognitive Functions Orientation: Person, Place, Situation, Time Sensorium: Alert Attention/Concentration: Attentive Abstract Thinking: [place] Estimate of Intelligence: Average Judgement: Intact, as evidence by: Insight regarding need for hospitalization Memory: Recent intact, as evidence by: Ability to recall events of the day, Remote intact, as evidenced by: Ability to recall historical events - Risk Risk: Withdrawal, Diminished functioning - Strength & Assets Inventory Strength & Assets Inventory: Family support, Cooperative - Limitations Limitations: Other DSM 5 DX - DSM 5 DSM 5 Diagnosis: Opiate use disorder severe. Bipolar 1 disorder depressed - Recommended/Plan of Treatment Treatment Recommendations and Plan of Treatment: Patient education. Supportive therapy. CBT for relapse prevention. [place] for abstinence. We'll start methadone taper for opiate withdrawal symptoms. We will start vitamins. Risk and benefits of medication were discussed with the patient. Patient understood and agreed. Projected ELOS: 4-5 days - Smoking Cessation Smoking Cessation Initiated: Yes Reason for not providing: Patient refused to take nicotine patch.
[2017-11-30] MEDS: Prenatal Multivit/Folic Acid/Iron Tab PO SCH (09:00)
--- NOTE | 2017-11-30 19:42 | PCM.PYCHPN ---
Psychiatric Progress Note - Psychiatric Progress Note Patient seen today, length of contact: 15 minutes Patient Chief Complaint: Last night and was unable to sleep. Problems Identified/Issues Discussed: Patient seen, chart reviewed, case discussed with the staff. Issues related to illness and treatment were discussed with the patient and staff. Reported compliant with treatment with no adverse affects. Tolerating treatment very well. Risk and benefits of medications were discussed with the patient patient understood and agreed. Reported not feeling much better. Calm and cooperative, speech soft with good eye contact. Awake alert oriented 3, denied any delusions, any auditory of visual hallucinations, no suicidal ideations or homicidal ideations at the time of evaluation. Aftercare discussed with the patient. Medical Problems: None reported Diagnostic Results: Reviewed DSM 5 Symptoms Update: Some improvement with treatment Medication Change: No Medical Record Reviewed: Yes Mental Status Examination - Cognitive Function Orientation: Person, Place, Situation, Time Memory: Intact Attention: WNL Concentration: WNL Association: [facility] Fund of Knowledge: [facility] Decription of patient's judgement and insights: Fair - Mood Mood: Depressed (Less than before) - Affect Affect: Other (Appropriate) - Speech Speech: Appropriate - Formal Thought Process Formal Thought Process: No Impairment Psychotic Thoughts and Behaviors: None - Suicidal Ideation Suicidal Ideation: No - Homicidal Ideation Homicidal Ideation: No Goal/Treatment Plan - Goal/Treatment Plan Need for Continued Stay: Remain at risks for inpatient hospitalization, Discharge may exacerbated symptoms, Severe functional impairment Progress Toward Problem(s) and Goals/Treatment Plan: Patient education. Supportive therapy. CBT for relapse prevention. [place] for abstinence. Continue treatment as before. We will provide an extra dose of methadone 5 mg later. Estimated Date of D/C: 12/04/17 - Smoking Cessation Smoking Cessation Initiated: No
[2017-12-01] MEDS: Prenatal Multivit/Folic Acid/Iron Tab PO SCH (10:17)
--- NOTE | 2017-12-01 14:40 | PCM.PYCHPN ---
Psychiatric Progress Note - Psychiatric Progress Note Patient seen today, length of contact: 15 minutes Patient Chief Complaint: I'm still feeling withdrawal symptoms. Problems Identified/Issues Discussed: Patient seen, chart reviewed, case discussed with the staff. Issues related to illness and treatment were discussed with the patient and staff. Reported compliant with treatment with no adverse affects. Tolerating treatment very well. Risk and benefits of medications were discussed with the patient patient understood and agreed. Reported not feeling much better. Still feeling some withdrawal symptoms. Calm and cooperative, speech soft with good eye contact. Awake alert oriented 3, denied any delusions, any auditory of visual hallucinations, no suicidal ideations or homicidal ideations at the time of evaluation. Aftercare discussed with the patient. Medical Problems: None reported Diagnostic Results: Reviewed DSM 5 Symptoms Update: Some improvement with treatment. Medication Change: Yes (Patient will get extra 5 mg methadone later.) Medical Record Reviewed: Yes Mental Status Examination - Cognitive Function Orientation: Person, Place, Situation, Time Memory: Intact Attention: WNL Concentration: WNL Association: WN Fund of Knowledge: [facility] Decription of patient's judgement and insights: Fair - Mood Mood: Anxious - Affect Affect: Other (Appropriate) - Speech Speech: Appropriate - Formal Thought Process Formal Thought Process: No Impairment Psychotic Thoughts and Behaviors: None - Suicidal Ideation Suicidal Ideation: No - Homicidal Ideation Homicidal Ideation: No Goal/Treatment Plan - Goal/Treatment Plan Need for Continued Stay: Remain at risks for inpatient hospitalization, Discharge may exacerbated symptoms, Severe functional impairment Progress Toward Problem(s) and Goals/Treatment Plan: Patient education. Supportive therapy. CBT for relapse prevention. [place] for abstinence. Continue treatment as before. We will provide an extra dose of methadone 5 mg later. Estimated Date of D/C: 12/04/17 - Smoking Cessation Smoking Cessation Initiated: No
[2017-12-02] MEDS: Prenatal Multivit/Folic Acid/Iron Tab PO SCH (09:46)
--- NOTE | 2017-12-02 19:32 | PCM.PYCHPN ---
Psychiatric Progress Note - Psychiatric Progress Note Patient seen today, length of contact: 15 minutes Patient Chief Complaint: I'm still feeling withdrawal symptoms. Problems Identified/Issues Discussed: Patient seen, chart reviewed, case discussed with the staff. Issues related to illness and treatment were discussed with the patient and staff. Reported compliant with treatment with no adverse affects. Tolerating treatment very well. Risk and benefits of medications were discussed with the patient patient understood and agreed. Reported not feeling much better. Still feeling some withdrawal symptoms. Also reported that now she wants to go to methadone maintenance treatment program. Information provided about methadone maintenance treatment programs. Patient will speak with the social contact worker to make appointment at the [facility] maintenance treatment program. We'll provide extra dosage of methadone. Patient agreed. Calm and cooperative, speech soft with good eye contact. Awake alert oriented 3, denied any delusions, any auditory of visual hallucinations, no suicidal ideations or homicidal ideations at the time of evaluation. Aftercare discussed with the patient. Medical Problems: None reported Diagnostic Results: Reviewed DSM 5 Symptoms Update: Improving with treatment. Medication Change: Yes (Patient will get extra 5 mg methadone later.) Medical Record Reviewed: Yes Mental Status Examination - Cognitive Function Orientation: Person, Place, Situation, Time Memory: Intact Attention: WNL Concentration: WNL Association: WN Fund of Knowledge: [facility] Decription of patient's judgement and insights: Fair - Mood Mood: Anxious - Affect Affect: Other (Appropriate) - Speech Speech: Appropriate - Formal Thought Process Formal Thought Process: No Impairment Psychotic Thoughts and Behaviors: None - Suicidal Ideation Suicidal Ideation: No - Homicidal Ideation Homicidal Ideation: No Goal/Treatment Plan - Goal/Treatment Plan Need for Continued Stay: Remain at risks for inpatient hospitalization, Discharge may exacerbated symptoms, Severe functional impairment Progress Toward Problem(s) and Goals/Treatment Plan: Patient education. Supportive therapy. CBT for relapse prevention. [place] for abstinence. Continue treatment as before. We will provide an extra doses of methadone 5 mg later. Patient wants to go to methadone maintenance treatment program for follow-up care after discharge from the hospital. Estimated Date of D/C: 12/04/17 - Smoking Cessation Smoking Cessation Initiated: Yes
[2017-12-03] MEDS: Prenatal Multivit/Folic Acid/Iron Tab PO SCH (09:13)
--- NOTE | 2017-12-03 12:08 | PCM.PYCHPN ---
Psychiatric Progress Note - Psychiatric Progress Note Patient seen today, length of contact: 22 min Patient Chief Complaint: "i am ready to go" Problems Identified/Issues Discussed: The pt is seen, chart reviewed and case discussed She is not known to the financial underwriter and has a 48-hr notice that expires on 12/04 at 1: 30 pm She agreed for us to talk to her daughter who I called and she called me back The pt says she is Ok and not suicidal, she agreed to continue Abilify and Lexapro but not [place] or gabapentin Risks discussed (of meds and leaving early) Her daughter is worried about her leaving early but she understood that she is not committable against her will Daughter reports mostly alcohol-induced SI, as she had not had this before, but she had unstable relations and decreasing functioning since 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 She wants the pt to go to a rehab, but pt claims she will arrange it herself as she had already called places. Support given, CBT used Medication Change: Yes (methadone dose adjusted) Medical Record Reviewed: Yes Mental Status Examination - Cognitive Function Orientation: Person, Place, Situation, Time Memory: Intact Attention: WNL Concentration: WNL Association: WNL Fund of Knowledge: WNL - Mood Mood: Anxious - Affect Affect: Other (Appropriate) - Speech Speech: Appropriate - Formal Thought Process Formal Thought Process: No Impairment - Suicidal Ideation Suicidal Ideation: No - Homicidal Ideation Homicidal Ideation: No Goal/Treatment Plan - Goal/Treatment Plan Need for Continued Stay: Severe depression anxiety, Discharge may exacerbated symptoms, Severe functional impairment Progress Toward Problem(s) and Goals/Treatment Plan: Continue medications Support and psychoeducation daily Attend groups and activities daily After care planning by MARCELINO Estimated Date of D/C: 12/04/17
[2017-12-03 19:02] VITALS: O2SAT 98
--- NOTE | 2017-12-04 08:43 | PCM.PYCHDC ---
Mental Status Examination - Mental Status Examination Orientation: Person, Place, Situation, Time Memory: Intact Mood: Anxious Affect: Constricted Speech: Appropriate Attention: WNL Concentration: Poor Association: WNL Fund of Knowledge: WNL Formal Thought Process: No Impairment Suicidal Ideation: No Current Homicidal Ideation?: No Discharge Summary - Discharge Note Reason for Hospitalization: Opioid detox Consultations:: List each consultation separately and include: 1. Reason for request. 2. Findings. 3. Follow-up Summary of Hospital Course include:: 1. Description of specific treatment plan utilized for patients during their course of treatmen. 2. Summarize the time- course for resolution of acute symptoms and/or regressed behaviors. 3. Describe issues identified and worked on during hospitalization. 4. Describe medication utilized. 5. Describe medical problems identified and treated. 6. Reassessment of suicide risk Summary of Hospital Course: The pt was admitted and started on treatment with psychotherapy, support, psychoeducation and medications. [place] and CBT used. The pt attended groups and activities, as well as milieu therapy. All the risks, incl. risks of using them while , and benefits of medications are discussed and the patient understood and agreed. DC was also called and they will follow up after d/c The pt improved with the treatments provided. however, she was med-seeking and had some difficulty and then decided to go to methadone maintenance instead of finishing detox. She will start methadone program tomorrow at [facility] but also got readmitted to [facility]. - Final Diagnosis (DSM 5) Condition upon Discharge: STABLE DSM 5: opioid withdrawal Opioid use disorder severe. Bipolar 1 disorder depressed Disposition: HOME/ ROUTINE Follow-up Treatment Plan: Continue below medications after discharge. Use benadryl rarely Follow after care plan as discussed. Use relapse prevention skills Return to ER or call 911 if suicidal, homicidal or symptoms relapse. Stay away from stress, alcohol and drugs. See primary doctor regularly and get labs. Prescriptions/Medication Reconciliation: DiphenhydrAMINE [Benadryl] 50 mg PO HS PRN #30 cap PRN Reason: Insomnia Multivit/Folic Acid/I [] 1 tab PO DAILY #30 tab - Smoking Cessation Smoking Cessation Medication prescribed: No - Antipsychotic Medications Pt discharged on 2 or more routine antipsychotic medications: No
[2017-12-04] MEDS: Prenatal Multivit/Folic Acid/Iron Tab PO SCH (09:39)
[2017-12-04 10:22] VITALS: BP 117/83; PULSE 85; RESP 20; TEMP 98.4
--- NOTE | 2017-12-04 17:15 | PCM.PYCHPN ---
Psychiatric Progress Note - Psychiatric Progress Note Patient seen today, length of contact: 16 min Patient Chief Complaint: "I am withdrawing" Problems Identified/Issues Discussed: The pt is seen, chart reviewed, case discussed with staff. The pt is compliant with medications and reports no side-effects. Symptoms are improving but needs more time to stabilize. Pt attends groups and activities. Support given, psycho-education provided. After care discussed - wants to return to [facility] and she also now wants to try methadone maintenance Medication Change: Yes (methadone dose adjusted) Medical Record Reviewed: Yes Mental Status Examination - Cognitive Function Orientation: Person, Place, Situation, Time Memory: Intact Attention: WNL Concentration: Poor Association: WNL Fund of Knowledge: WNL - Mood Mood: Anxious - Affect Affect: Constricted - Speech Speech: Appropriate - Formal Thought Process Formal Thought Process: No Impairment - Suicidal Ideation Suicidal Ideation: No - Homicidal Ideation Homicidal Ideation: No Goal/Treatment Plan - Goal/Treatment Plan Need for Continued Stay: Severe depression anxiety, Discharge may exacerbated symptoms, Severe functional impairment Progress Toward Problem(s) and Goals/Treatment Plan: Continue medications Support and psychoeducation daily Attend groups and activities daily After care planning by MARCELINO Estimated Date of D/C: 12/04/17
== END 2017-12-04 10:00 | disposition home or self-care (01) | DRG 430 ==
LOC: C.ER 18:02 → C.7D 11-29 01:09
PROVIDERS: ADMIT Psychiatry & Neurology Psychiatry; ATTEND Psychiatry & Neurology Psychiatry
PROC: GZ56ZZZ Individual Psychotherapy, Supportive (ICD-10-PCS; principal; 2017-11-29)
DX: F31.30 Bipolar disorder, current episode depressed, mild or moderate severity, unspecified (principal); F11.23 Opioid dependence with withdrawal; F17.210 Nicotine dependence, cigarettes, uncomplicated; F12.20 Cannabis dependence, uncomplicated